=== PATIENT | male | born 1990 | race Two or more races ===

== ENCOUNTER 2021-01-09 20:36 | Emergency (ER) | payer OTHER ==
[~2021-01-09] VITALS: Ht 165.1 cm; Wt 87.5 kg
--- NOTE | 2021-01-09 20:50 | NUR ---
PT BIBELF C/O SUICIDAL IDEATION WITH PLAN TO OVERDOSE. PT AAOX4, CALM AND COOPERATIVE. VITAL SIGNS STABLE. RESPIRATIONS EVEN AND UNLABORED. AMBULATORY WITH STEADY GAIT. SKIN INTACT. NO ACUTE DISTRESS NOTED AT THIS TIME. PENDING MD PERSAUD
--- NOTE | 2021-01-09 20:55 | NUR ---
URINE COLLECTED, CALLED LAB FOR ASBESTOS BRAKE LINING FINISHER HELPER
--- NOTE | 2021-01-09 21:00 | NUR ---
ENERGY EFFICIENCY SPECIALIST AT BEDSIDE FOR BLOOD DRAW
[2021-01-09 21:03] LABS: BASOPHILS # (AUTO) 0.1 /CMM (0.0-0.2); BASOPHILS % (AUTO) 0.9 % (0.0-2.0); EOSINOPHILS % (AUTO) 1.2 % (0.0-6.0); HEMATOCRIT 45 % (39-51); LYMPHOCYTES # (AUTO) 2.8 /CMM (0.8-4.8); LYMPHOCYTES % (AUTO) 25.1 % (20.0-44.0); MEAN CORPUSCULAR HGB CONC 33 g/dl (31.0-36.0); MEAN CORPUSCULAR VOLUME 91 fL (80-96); MONOCYTES # (AUTO) 1.1 /CMM (0.1-1.30); MONOCYTES % (AUTO) 9.4 % (2.0-12.0); NEUTROPHILS # (AUTO) 7.1 /CMM (1.8-8.9); NEUTROPHILS % (AUTO) 63.4 % (43.0-81.0); PLATELET COUNT (AUTO) 323 /CMM (150-450); RED BLOOD CELL COUNT(AUTO) 4.98 MIL/uL (4.5-6.0); WHITE BLOOD COUNT (AUTO) 11.3 K/uL (4.3-11.0)
--- NOTE | 2021-01-09 21:32 | NUR ---
COVID SWAB COLLECTED, CALLED LAB FOR ORDERLIES TEACHER
[2021-01-09 21:37] LABS: BILIRUBIN,URINE SMALL (NEGATIVE); COLOR,URINE ORANGE (YELLOW); LEUKOCYTE ESTERASE ,URINE Negative (NEGATIVE); NITRITE, URINE Negative (NEGATIVE); PH,URINE 5.5 (5.0-8.0); PROTEIN,URINE Negative (NEGATIVE); UGLUCOSE Negative (NEGATIVE); UROBILINOGEN,URINE 0.2 EU/dL (0.2)
[2021-01-09 22:07] LABS: ALANINE AMINOTRANSFERASE 31 U/L (12-78); ALBUMIN 4.1 g/dL (3.4-5.0); ALCOHOL, BLOOD < 3 mg/dL (0-0); ALKALINE PHOSPHATASE 71 U/L (46-116); ASPARTATE AMINOTRANSFERASE 28 U/L (15-37); BILIRUBIN,DIRECT 0.1 mg/dL (0.0-0.2); BILIRUBIN,TOTAL 0.4 mg/dL (0.2-1.0); CALCIUM, SERUM 9.1 mg/dL (8.5-10.1); CARBON DIOXIDE 26 mmol/L (21-32); CHLORIDE 103 mmol/L (98-107); GLUCOSE 83 mg/dL (74-106); POTASSIUM 4.1 mmol/L (3.5-5.1); SODIUM SERUM 140 mmol/L (136-145); TOTAL PROTEIN, SERUM 8.1 g/dL (6.4-8.2); UREA NITROGEN, BLOOD 15 mg/dL (7-18)
[2021-01-09 22:25] LABS: ACETAMINOPHEN < 2 ug/ml (10-30)
[2021-01-09 22:26] LABS: BACTERIA,URINE Rare /HPF (None Seen); RBC,URINE NONE SEEN /HPF (0-2); SQUAMOUS EPITHELIAL CELL,UR Few /HPF (None Seen); WBC,URINE NONE SEEN /HPF (0-3)
--- NOTE | 2021-01-09 22:30 | NUR ---
FACESHEET AND CLINICAL FAXED TO [facility] FOR VOLUNTARY PSYCH ADMISSION.
--- NOTE | 2021-01-09 22:42 | NUR ---
LAB CALLED REGARDING NEGATIVE COVID RESULT.
--- NOTE | 2021-01-10 04:04 | NUR ---
TRANSFER INFORMATION: PT ACCEPTED AT [facility] ACCEPTING MD AMEZCUA PHONE NUMBER FOR REPORT EXT [phone]
--- NOTE | 2021-01-10 04:08 | NUR ---
[facility] TRAN[facility]ORT ETA 30-40MIN.
[2021-01-10 04:18] VITALS: BP 115/70
--- NOTE | 2021-01-10 04:25 | NUR ---
REPORT GIVEN TO EMMIE TAYLOR FROM [facility]
--- NOTE | 2021-01-10 04:43 | NUR ---
REPORT GIVEN TO EMT, PT TRANSFERED TO [facility].
== END 2021-01-10 04:46 ==
LOC: ER 20:39
DX: R45.851 Suicidal ideations (principal); F19.10 Other psychoactive substance abuse, uncomplicated; Z20.822 Contact with and (suspected) exposure to COVID-19; F20.9 Schizophrenia, unspecified; F31.9 Bipolar disorder, unspecified; Z91.14 Patient's other noncompliance with medication regimen
CPT/HCPCS: 36415; 80048; 80076; 80299; 80307; 80320; 81001; 85025; 87426; 99285; C9803; G0480

== ENCOUNTER 2021-02-26 07:30 | Emergency (ER) | payer MEDICAID, OTHER ==
[~2021-02-26] VITALS: Ht 170.2 cm; Wt 85.7 kg
--- NOTE | 2021-02-26 07:44 | NUR ---
BIB transport 60 c/o paranoia. Denies si or hi. On room air, breathing evenly and unlabored. Sitter at bedside for constant monitoring. Will continue to monitor accordingly.
--- NOTE | 2021-02-26 07:49 | NUR ---
urine collected and sent to lab
[2021-02-26 08:15] LABS: BILIRUBIN,URINE NEGATIVE (NEGATIVE); COLOR,URINE YELLOW (YELLOW); LEUKOCYTE ESTERASE ,URINE NEGATIVE (NEGATIVE); NITRITE, URINE NEGATIVE (NEGATIVE); PH,URINE 5.5 (5.0-8.0); PROTEIN,URINE NEGATIVE (NEGATIVE); UGLUCOSE NEGATIVE (NEGATIVE); UROBILINOGEN,URINE 0.2 EU/dL (0.2)
[2021-02-26 08:17] LABS: CALCIUM, SERUM 8.6 mg/dL (8.5-10.1); CARBON DIOXIDE 25 mmol/L (21-32); CHLORIDE 103 mmol/L (98-107); CREATININE 0.9 mg/dL (0.6-1.3); GLUCOSE 94 mg/dL (74-106); POTASSIUM 3.6 mmol/L (3.5-5.1); SODIUM SERUM 138 mmol/L (136-145); UREA NITROGEN, BLOOD 14 mg/dL (7-18)
[2021-02-26 08:19] LABS: BASOPHILS # (AUTO) 0.1 /CMM (0.0-0.2); BASOPHILS % (AUTO) 0.8 % (0.0-2.0); EOSINOPHILS % (AUTO) 0.6 % (0.0-6.0); HEMATOCRIT 40 % (39-51); HEMOGLOBIN 13.4 g/dL (13.5-17.5); LYMPHOCYTES # (AUTO) 2.2 /CMM (0.8-4.8); LYMPHOCYTES % (AUTO) 28.1 % (20.0-44.0); MEAN CORPUSCULAR HGB CONC 34 g/dl (31.0-36.0); MEAN CORPUSCULAR VOLUME 89 fL (80-96); MONOCYTES # (AUTO) 0.7 /CMM (0.1-1.30); NEUTROPHILS # (AUTO) 4.9 /CMM (1.8-8.9); NEUTROPHILS % (AUTO) 61.5 % (43.0-81.0); PLATELET COUNT (AUTO) 241 /CMM (150-450); RED BLOOD CELL COUNT(AUTO) 4.45 MIL/uL (4.5-6.0); WHITE BLOOD COUNT (AUTO) 7.9 K/uL (4.3-11.0)
[2021-02-26 08:23] LABS: ALANINE AMINOTRANSFERASE 12 U/L (12-78); ALBUMIN 3.9 g/dL (3.4-5.0); ALKALINE PHOSPHATASE 57 U/L (46-116); ASPARTATE AMINOTRANSFERASE 23 U/L (15-37); BILIRUBIN,DIRECT 0.1 mg/dL (0.0-0.2); BILIRUBIN,TOTAL 0.4 mg/dL (0.2-1.0); TOTAL PROTEIN, SERUM 7.8 g/dL (6.4-8.2)
[2021-02-26 08:25] LABS: ACETAMINOPHEN < 0 ug/ml (10-30); ALCOHOL, BLOOD < 3 mg/dL (0-0)
[2021-02-26 09:02] LABS: BACTERIA,URINE Rare /HPF (None Seen); RBC,URINE NONE SEEN /HPF (0-2); SQUAMOUS EPITHELIAL CELL,UR Rare /HPF (None Seen); WBC,URINE 0-2 /HPF (0-3)
--- NOTE | 2021-02-26 09:45 | NUR ---
pt sleeping, easily arousable. vss. sirtter at bedside. will continue to monitor.
--- NOTE | 2021-02-26 11:45 | NUR ---
Bookkeeper Assistant note: administrative services specialist requested for suicidal ideations and homelessness. SW attempted to meet with the patient but was unable to arouse. SW will meet with the patient at a later time.
--- NOTE | 2021-02-26 16:13 | NUR ---
received a call from [facility] and patient accepted at [facility] under Dr. Wong [phone] [address]
--- NOTE | 2021-02-26 16:29 | NUR ---
"Social Service Consult: construction services technician consult requested for suicidal ideations and homelessness. Patient is a 30-year-old, male. SW met with the patient at his hospital bed in the emergency department. Patient is alert and oriented x4. Per patients chart, patient was brought into the hospital on 02/25/21 for suicidal ideations. Patient stated he is currently homeless and has been homeless for the last ten years. Patient currently has no source of income. Patient stated that he drinks alcohol and uses Tobacco several times a week. Patients toxicology report is positive for Amphetamine. Patient stated that he has a history of Schizoaffective Disorder, Bipolar Type and OCD. Patient has not been taking any psychiatric medications. Patient stated that he has experienced visual hallucinations in the past but not currently. Patient states that he is currently suicidal with a plan to cut himself with a blade and is voluntarily willing to go to [facility]. SW offered homeless resources to the patient and asked if he is familiar with the resources. Patient stated that he is familiar with the resources and accepted the resources. Patient signed the homeless waiver and SW filed the waiver in the patients chart. PLAN: Patient has been provided with homeless resources. SW notified library services coordinator Jacob and RN Cristian faxed clinicals to [facility] [phone]. Nursing to follow-up. Year-round shelters: [facility] [address] [place] [address] ; [facility] [address] [place] [address]; [facility] [id number] [facility] [address] SPA 4 | [facility] Recreation [place] Provider: First to Serve Address: [address], [address] # of Beds: 48 Population Served: [facility] Provider: First to Serve Address: [address] [facility], [address] # of Beds: 73 Population Served: [facility] 6 | [facility] Provider: Home at Last Address: [address] [place] [address], [address] # of Beds: 63 Population Served: [facility] 3 | [facility] Provider: Volunteers ede [place] Address: [address] [facility] [place], [address] # of Beds: 75 Population Served: [facility] 8 | [facility] Provider: Klarissa [place] Address: [address] [facility], [address] # of Beds: 80 Population Served: [facility] 1 | [facility] Provider: Volunteers ede [place] Address: [address] [place] [address], [address] # of Beds: 85 Population Served: [facility] 2 | [facility] Provider: Joanne of [facility] Address: Confidential (please call for location) # of Beds: 52 Population Served: [facility] 4 | [facility] Provider: [facility] Address: [address] [place] [address], [facility] # of Beds: 49 Population Served: [facility] Provider: First To Serve Address: [address] [place] [address], [address] # of Beds: 27 Population Served: [facility] Facility Provider: Home at Last Address: [address] [place] [address], [address] # of Beds: 20 Population Served: Males Hygiene: [facility]: [address] [address] [place] ; [facility] [address] [facility] ; [facility] [address] . Food Resources: [facility] at [facility]- [address] [facility]; Meet Each Need with Dignity ([facility]) [address] [facility]; [facility] [address] [facility]; [facility] [address] [place] [address] [place]. Mental Health resources provided: [facility] [address] [place] [address] ; [facility] [address] [facility] [address], [place], [place] [phone] ; [facility] [address] [place] [address] ; [facility] [address] [place], [place] [id number] Healthcare Clinics: [facility] [address] [facility], [address] [place]. [place] ; [facility] [address] [facility] [address] [place] [address]; [facility] [address] [facility]. [place] [phone] Counseling--Outpatient [facility] [address] [facility], [place] [address] (Specializes in in-depth psychotherapy for emotional distress: anxiety, depression, interpersonal conflicts, life transitions, childhood abuse) [facility] [address] [place] [address] (Assist with solving problem marital difficulties, separation & divorce, aging parents, & grief, chronic & terminal illness) PSYCHIATRIC OUTPATIENT SERVICES [facility] Partial Hospitalization and Intensive Outpatient Program (Managed Care and [place] Only) [address] [facility]. [facility] [address] [facility] Partial Hospitalization and Outpatient Program [address] [place] BayFormerly [facility]. [address] [place], [place] [id number] [facility] Partial Hospitalization and Outpatient Program [address] [facility]. [place], [place] [id number] [facility] [address] [facility]. [address] [place], [place] [id number] [facility] Partial Hospitalization and Outpatient Program [address] [place], [place] [phone] "
--- NOTE | 2021-02-26 17:01 | NUR ---
[facility] FOR BLS, ETA 1830 TO Kun HAY. PRIMARY NURSE AWARE.
[2021-02-26 17:05] VITALS: BP 132/76
--- NOTE | 2021-02-26 17:12 | NUR ---
REPORT GIVEN TO TREVON TAYLOR AT [facility]. AWAITNG TRANSFER.
--- NOTE | 2021-02-26 19:21 | NUR ---
[facility] ambulance at bedside for transport to [facility].
== END 2021-02-26 19:31 ==
LOC: ER 07:37
DX: R45.851 Suicidal ideations (principal); F29 Unspecified psychosis not due to a substance or known physiological condition; Z91.14 Patient's other noncompliance with medication regimen; Z91.5 Personal history of self-harm; R78.4 Finding of other drugs of addictive potential in blood; Z20.822 Contact with and (suspected) exposure to COVID-19
CPT/HCPCS: 36415; 80048; 80076; 80299; 80307; 80320; 81001; 85025; 87426; 99285; C9803; G0480

== ENCOUNTER 2021-03-14 06:10 | Emergency (ER) | payer MEDICAID ==
[~2021-03-14] VITALS: Ht 170.2 cm; Wt 92.5 kg
--- NOTE | 2021-03-14 06:15 | NUR ---
TO ER BED 15 AMBULATORY C/O SI WITH PLAN TO BUY A GUN & SHOOT SELF, RUN IN FRONT OF A MOVING TRAIN. PTSD AND RARANOIA. DENIES HI. REQUESTING VOLUNTARY ADMISSION TO [facility]. PT REPORTS DRINKING 1/2 A CAN OF BEER INDEX CLERK. PT CALM AND COOPERATIVE. PT AAOX4 NO ACUTE DISTRESS NOTED, RESP EVEN AND UNLABORED. PLACE PT ON HOSPITAL GOWN, ALL BELONGINGS REMOVED AND PLACED IN A LOCKED HOSPITAL LOCKER. 1:1 SITTER AT BEDSIDE FOR PT SAFETY.
--- NOTE | 2021-03-14 06:20 | NUR ---
URINE SAMPLE COLLECTED AND SENT TO LAB.
[2021-03-14] MEDS ORDERED: OLANZAPINE 5 MG TABLET ONE (06:26)
--- NOTE | 2021-03-14 06:26 | NUR ---
VENTILATING ENGINEER AT BEDSIDE FOR BLOOD DRAW.
[2021-03-14] MEDS ORDERED: OLANZAPINE 5 MG TABLET PO ONE (06:30)
--- NOTE | 2021-03-14 06:35 | NUR ---
COVID SWAB COLLECTED AND SENT TO LAB.
[2021-03-14 06:47] LABS: BASOPHILS # (AUTO) 0.1 /CMM (0.0-0.2); BASOPHILS % (AUTO) 0.9 % (0.0-2.0); EOSINOPHILS % (AUTO) 0.8 % (0.0-6.0); HEMATOCRIT 44 % (39-51); LYMPHOCYTES # (AUTO) 2.2 /CMM (0.8-4.8); LYMPHOCYTES % (AUTO) 32.8 % (20.0-44.0); MEAN CORPUSCULAR HGB CONC 34 g/dl (31.0-36.0); MEAN CORPUSCULAR VOLUME 90 fL (80-96); MONOCYTES # (AUTO) 0.8 /CMM (0.1-1.30); MONOCYTES % (AUTO) 11.7 % (2.0-12.0); NEUTROPHILS # (AUTO) 3.6 /CMM (1.8-8.9); NEUTROPHILS % (AUTO) 53.8 % (43.0-81.0); PLATELET COUNT (AUTO) 312 /CMM (150-450); RED BLOOD CELL COUNT(AUTO) 4.88 MIL/uL (4.5-6.0); WHITE BLOOD COUNT (AUTO) 6.6 K/uL (4.3-11.0)
[2021-03-14 07:00] LABS: CARBON DIOXIDE 28 mmol/L (21-32); CHLORIDE 104 mmol/L (98-107); CREATININE 0.8 mg/dL (0.6-1.3); GLUCOSE 86 mg/dL (74-106); POTASSIUM 3.7 mmol/L (3.5-5.1); SODIUM SERUM 139 mmol/L (136-145); UREA NITROGEN, BLOOD 12 mg/dL (7-18)
[2021-03-14] MEDS ORDERED: ARIPIPRAZOLE 5 MG TABLET PO ONE (07:00)
[2021-03-14 07:24] LABS: ALANINE AMINOTRANSFERASE 27 U/L (12-78); ALBUMIN 4.4 g/dL (3.4-5.0); ALCOHOL, BLOOD < 3 mg/dL (0-0); ALKALINE PHOSPHATASE 64 U/L (46-116); ASPARTATE AMINOTRANSFERASE 23 U/L (15-37); BILIRUBIN,DIRECT 0.1 mg/dL (0.0-0.2); BILIRUBIN,TOTAL 0.3 mg/dL (0.2-1.0); TOTAL PROTEIN, SERUM 8.3 g/dL (6.4-8.2)
[2021-03-14 07:28] LABS: ACETAMINOPHEN < 10 ug/ml (10-30)
--- NOTE | 2021-03-14 07:52 | NUR ---
received a call from the lab regarding covid 19 result "negative".
--- NOTE | 2021-03-14 08:08 | NUR ---
[facility]
--- NOTE | 2021-03-14 11:15 | NUR ---
received a call from [facility] intake and patient is accepted.
--- NOTE | 2021-03-14 11:21 | NUR ---
transport called am angelica eta 1430 per nolvia
--- NOTE | 2021-03-14 11:30 | NUR ---
Social Service Consult: registered nurse surgical services consult requested for suicidal ideation with a plan. Patient is a 30-year-old, male. SW met with the patient at his hospital bed in the emergency department. Patient was alert and oriented x4. Patient was resting. Per patients chart, ED faxed clinicals to [facility] and ED will follow up with this discharge plan. Per patients chart, patient was brought in by ambulance on 03/14/2021 for suicidal ideation with a plan. Patient stated that he is currently living alone at [address] [place] [address]. Patient stated that he recently got a new phone and does not know his phone number at this time. SW confirmed with the patient that he is still willing to go to [facility]. Patient confirmed. Patient stated that he has been admitted to psychiatric facilities around 6-7x in the past. SW asked patient if he is currently experiencing suicidal ideation. Patient stated that he has suicidal ideation with a plan to buy a gun and shoot himself or jump in front of a train at the [facility] [employer] station. SW explored possible triggers for his SI. Patient did not provide SW with specific triggers but stated that he has been feeling overwhelmed. Per ED physicians report, patients friend was recently killed and patient believes that he might be next. SW allowed patient to express his feelings, provided supportive counseling and asked the patient if he currently has an outpatient provider for mental health. Patient stated that he currently has an outpatient provider (Ashvin Estevez) who he meets with often. SW assessed patients history of mental illness and patient stated that he has a history of Bipolar Disorder and Schizophrenia. Patient stated that he currently takes Depakote and Abilify. SW asked the patient if he has been experiencing hallucinations or delusions and patient stated that he has experienced visual hallucinations intermittently during his time in the emergency department. Patient did not elaborate further about the hallucinations. 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 Patient stated he is independent with his ADLs. SW asked patient about his history of substance use and patient stated that he has used marijuana and cocaine weeks ago and stated that he has been drinking some beer around 3x/week to stay relaxed. SW asked patient if he is concerned about his substance use and patient stated No, I am not dependent on the substances. Patient is waiting to be accepted to [facility]. SW discussed addiction resources for drug and alcohol use with the patient and patient accepted these resources. PLAN: Patient will go to [facility] once he is accepted. No further interventions needed at this time however, SW will follow-up as needed. Substance use resources provided included: [facility] Substance Abuse Self-Helpline ([facility]) ; [facility] [address] [facility] [phone] ; [facility] [address] [facility] [phone] ; [facility] [address] [facility] [phone] ; [facility] 9516 [facility] [phone] ; [facility] [address] [facility] [phone] ; [facility]; [facility] [place]; Alcoholics Anonymous -[facility]
[2021-03-14 12:11] VITALS: BP 110/64
--- NOTE | 2021-03-14 13:12 | NUR ---
REPORT GIVEN TO JENIFFER AT [facility].
--- NOTE | 2021-03-14 14:45 | NUR ---
TRANSPORTED TO [facility] IN STABLE CONDITION.
== END 2021-03-14 14:45 ==
LOC: ER 06:14
DX: R45.851 Suicidal ideations (principal); F31.9 Bipolar disorder, unspecified; Z91.14 Patient's other noncompliance with medication regimen; F20.9 Schizophrenia, unspecified; Z20.822 Contact with and (suspected) exposure to COVID-19
CPT/HCPCS: 36415; 80048; 80076; 80299; 80307; 80320; 85025; 87426; 99285; C9803; G0480

== ENCOUNTER 2021-03-20 17:07 | Emergency (ER) | payer MEDICAID, OTHER ==
[~2021-03-20] VITALS: Ht 170.2 cm; Wt 94.3 kg
--- NOTE | 2021-03-20 17:29 | NUR ---
pt self presents to ed. steady gait c/o auditory and visual hallucinations x today[place] "people out to kill him." paranoid thinking somebody putting drugs in his food. pt is aaox3, denies si/hi and states he want voluntary psych admission to [facility]. awaiting md alba.
[2021-03-20 17:54] LABS: BASOPHILS # (AUTO) 0.1 /CMM (0.0-0.2); BASOPHILS % (AUTO) 0.7 % (0.0-2.0); EOSINOPHILS % (AUTO) 0.2 % (0.0-6.0); HEMATOCRIT 45 % (39-51); HEMOGLOBIN 15.5 g/dL (13.5-17.5); LYMPHOCYTES # (AUTO) 2.4 /CMM (0.8-4.8); LYMPHOCYTES % (AUTO) 26.1 % (20.0-44.0); MEAN CORPUSCULAR HGB CONC 34 g/dl (31.0-36.0); MEAN CORPUSCULAR VOLUME 90 fL (80-96); MONOCYTES % (AUTO) 10.9 % (2.0-12.0); NEUTROPHILS # (AUTO) 5.8 /CMM (1.8-8.9); NEUTROPHILS % (AUTO) 62.1 % (43.0-81.0); PLATELET COUNT (AUTO) 292 /CMM (150-450); RED BLOOD CELL COUNT(AUTO) 5.01 MIL/uL (4.5-6.0); WHITE BLOOD COUNT (AUTO) 9.3 K/uL (4.3-11.0)
--- NOTE | 2021-03-20 18:07 | NUR ---
covid swab done and sent to the lab
[2021-03-20 18:15] LABS: ALANINE AMINOTRANSFERASE 28 U/L (12-78); ALBUMIN 4.3 g/dL (3.4-5.0); ALCOHOL, BLOOD < 3 mg/dL (0-0); ALKALINE PHOSPHATASE 66 U/L (46-116); ASPARTATE AMINOTRANSFERASE 28 U/L (15-37); BILIRUBIN,DIRECT 0.1 mg/dL (0.0-0.2); BILIRUBIN,TOTAL 0.6 mg/dL (0.2-1.0); CALCIUM, SERUM 9.2 mg/dL (8.5-10.1); CARBON DIOXIDE 28 mmol/L (21-32); CHLORIDE 103 mmol/L (98-107); CREATININE 0.9 mg/dL (0.6-1.3); GLUCOSE 95 mg/dL (74-106); POTASSIUM 3.9 mmol/L (3.5-5.1); SODIUM SERUM 138 mmol/L (136-145); TOTAL PROTEIN, SERUM 8.2 g/dL (6.4-8.2); UREA NITROGEN, BLOOD 12 mg/dL (7-18)
[2021-03-20 18:18] LABS: ACETAMINOPHEN < 0 ug/ml (10-30)
[2021-03-20] MEDS ORDERED: OLANZAPINE 5 MG TABLET PO ONE (18:30)
[2021-03-20] MEDS ORDERED: OLANZAPINE 5 MG TABLET ONE (18:33)
--- NOTE | 2021-03-20 18:52 | NUR ---
LAB CALLED PT COVID RESULT NEGATIVE (-).
[2021-03-20 18:55] LABS: BILIRUBIN,URINE NEGATIVE (NEGATIVE); COLOR,URINE YELLOW (YELLOW); LEUKOCYTE ESTERASE ,URINE NEGATIVE (NEGATIVE); NITRITE, URINE NEGATIVE (NEGATIVE); PROTEIN,URINE 30 mg/dl (NEGATIVE); UGLUCOSE NEGATIVE (NEGATIVE); UROBILINOGEN,URINE 0.2 EU/dL (0.2)
[2021-03-20 19:03] LABS: BACTERIA,URINE Few /HPF (None Seen); RBC,URINE 0-2 /HPF (0-2); WBC,URINE 0-2 /HPF (0-3)
[2021-03-20 19:04] LABS: MUCUS,URINE Moderate /LPF (None Seen); SQUAMOUS EPITHELIAL CELL,UR Moderate /HPF (None Seen)
--- NOTE | 2021-03-20 20:36 | NUR ---
FACESHEET AND CLINICALS FAXED TO [facility].
--- NOTE | 2021-03-20 23:33 | NUR ---
PT DENIES SI/HI. PT REQUESTING TO BE DISCHARGED FROM ER. NC OK TO BE DISCHARGED PER DR GALLARDO
[2021-03-20 23:34] VITALS: BP 134/78
== END 2021-03-20 23:34 | disposition home or self-care (01) ==
LOC: ER 17:15
DX: F20.9 Schizophrenia, unspecified (principal); F31.9 Bipolar disorder, unspecified; Z20.822 Contact with and (suspected) exposure to COVID-19
CPT/HCPCS: 36415; 80048; 80076; 80299; 80307; 80320; 81001; 85025; 87426; 99284; C9803; G0480

== ENCOUNTER 2021-03-31 15:42 | Emergency (ER) | payer OTHER ==
[~2021-03-31] VITALS: Ht 170.2 cm; Wt 92.1 kg
--- NOTE | 2021-03-31 16:20 | NUR ---
PT SELF PRESENT TO ED STATING HE THINKS SOMEBODY OUT TO GET HIM AND HE NEED TO BE ON A SUICIDAL WATCH BECAUSE HE HAS PLAN TO OVERDOSE ON HEROIN. PT DENIES DRUG USE TODAY. STABLE VITALS. ROOMED, SITTER AT BEDSIDE. AWAITING MD PERSAUD.
--- NOTE | 2021-03-31 16:22 | NUR ---
PT IS REQUESTING TO GO [facility]OL[facility] TO [facility].
--- NOTE | 2021-03-31 16:36 | NUR ---
VANE CASAS AT BEDSIDE FOR EVAL.
--- NOTE | 2021-03-31 16:48 | NUR ---
CAMERA SYSTEMS ENGINEER AT BEDSIDE FOR BLOOD DRAW.
[2021-03-31 16:55] LABS: BASOPHILS # (AUTO) 0.1 /CMM (0.0-0.2); BASOPHILS % (AUTO) 0.8 % (0.0-2.0); EOSINOPHILS % (AUTO) 1.8 % (0.0-6.0); HEMATOCRIT 44 % (39-51); HEMOGLOBIN 14.8 g/dL (13.5-17.5); LYMPHOCYTES # (AUTO) 2.2 /CMM (0.8-4.8); LYMPHOCYTES % (AUTO) 25.9 % (20.0-44.0); MEAN CORPUSCULAR HGB CONC 34 g/dl (31.0-36.0); MEAN CORPUSCULAR VOLUME 91 fL (80-96); MONOCYTES # (AUTO) 0.6 /CMM (0.1-1.30); MONOCYTES % (AUTO) 7.3 % (2.0-12.0); NEUTROPHILS # (AUTO) 5.4 /CMM (1.8-8.9); NEUTROPHILS % (AUTO) 64.2 % (43.0-81.0); PLATELET COUNT (AUTO) 298 /CMM (150-450); RED BLOOD CELL COUNT(AUTO) 4.83 MIL/uL (4.5-6.0); WHITE BLOOD COUNT (AUTO) 8.5 K/uL (4.3-11.0)
[2021-03-31 17:12] LABS: CARBON DIOXIDE 28 mmol/L (21-32); CHLORIDE 105 mmol/L (98-107); CREATININE 1.1 mg/dL (0.6-1.3); GLUCOSE 104 mg/dL (74-106); POTASSIUM 4.1 mmol/L (3.5-5.1); SODIUM SERUM 142 mmol/L (136-145); UREA NITROGEN, BLOOD 9 mg/dL (7-18)
[2021-03-31 17:18] LABS: ALANINE AMINOTRANSFERASE 26 U/L (12-78); ALBUMIN 3.8 g/dL (3.4-5.0); ALCOHOL, BLOOD < 3 mg/dL (0-0); ALKALINE PHOSPHATASE 66 U/L (46-116); ASPARTATE AMINOTRANSFERASE 16 U/L (15-37); BILIRUBIN,TOTAL 0.2 mg/dL (0.2-1.0); TOTAL PROTEIN, SERUM 7.4 g/dL (6.4-8.2)
[2021-03-31 17:22] LABS: ACETAMINOPHEN < 2 ug/ml (10-30)
--- NOTE | 2021-03-31 17:36 | NUR ---
LAB CALLED PT COVID RESULT NEGATIVE (-).
[2021-03-31 17:51] LABS: BACTERIA,URINE Rare /HPF (None Seen); BILIRUBIN,URINE Negative (NEGATIVE); COLOR,URINE YELLOW (YELLOW); LEUKOCYTE ESTERASE ,URINE Negative (NEGATIVE); NITRITE, URINE Negative (NEGATIVE); PROTEIN,URINE Negative (NEGATIVE); RBC,URINE NONE SEEN /HPF (0-2); SQUAMOUS EPITHELIAL CELL,UR Few /HPF (None Seen); UGLUCOSE Negative (NEGATIVE); UROBILINOGEN,URINE 0.2 EU/dL (0.2); WBC,URINE NONE SEEN /HPF (0-3)
[2021-03-31 18:35] VITALS: BP 132/88
--- NOTE | 2021-03-31 19:30 | NUR ---
PT NO LONGER AT ASSIGNED BED. ELOPED.
== END 2021-03-31 19:33 | disposition left against medical advice (07) ==
LOC: ER 15:52
DX: R45.851 Suicidal ideations (principal); F20.9 Schizophrenia, unspecified; F31.9 Bipolar disorder, unspecified; F15.10 Other stimulant abuse, uncomplicated; Z20.822 Contact with and (suspected) exposure to COVID-19
CPT/HCPCS: 36415; 80048; 80076; 80299; 80307; 80320; 81001; 84484; 85025; 87426; 93005; 99285; C9803; G0480

== ENCOUNTER 2021-04-23 03:10 | Emergency (ER) | payer OTHER ==
[~2021-04-23] VITALS: Ht 170.2 cm; Wt 92.1 kg
[2021-04-23 03:11] VITALS: BP 134/79
--- NOTE | 2021-04-23 03:13 | NUR ---
DR. HERNÁNDEZ AT BEDSIDE FOR MEDICAL SCREENING EXAM
== END 2021-04-23 03:33 | disposition home or self-care (01) ==
LOC: ER 03:13
DX: F60.0 Paranoid personality disorder (principal); F20.9 Schizophrenia, unspecified; F31.9 Bipolar disorder, unspecified